=== PATIENT | male | born 1965 | race Caucasian/White ===

== ENCOUNTER → 2019-10-07 | Outpatient (CLI) | payer BC | END | disposition home or self-care (01) | LOC: ROC 07:47 | PROVIDERS: ATTEND Radiology Radiation Oncology | DX: D32.0 Benign neoplasm of cerebral meninges (principal); R42 Dizziness and giddiness; H53.2 Diplopia | CPT/HCPCS: 99213; G0463 ==

== ENCOUNTER 2021-01-02 10:19 | Outpatient (CLI) | payer BC | END 2021-01-02 23:59 | disposition home or self-care (01) | LOC: ROC 10:19 | PROVIDERS: ATTEND Radiology Radiation Oncology | DX: Z08 Encounter for follow-up examination after completed treatment for malignant neoplasm (principal); D32.0 Benign neoplasm of cerebral meninges | CPT/HCPCS: 99213; G0463 ==